=== PATIENT | female | born 1990 | race Caucasian/White ===

== ENCOUNTER 2024-07-13 11:19 | Outpatient (CLI) | payer OTHER | END 2024-07-13 11:20 | disposition home or self-care (01) | LOC: CSHDTY/OP 11:19 | PROVIDERS: ATTEND Nurse Practitioner Family | DX: E11.65 Type 2 diabetes mellitus with hyperglycemia (principal); E66.813 Obesity, class 3; Z68.42 Body mass index [BMI] 45.0-49.9, adult | CPT/HCPCS: 97802 ==